=== PATIENT | female | born 1945 | race Caucasian/White ===

== ENCOUNTER 2024-01-17 12:04 | Outpatient (AMB) | payer BC, SELFPAY ==
--- NOTE | 2024-01-17 13:00 | A.OFFVIS_ITS ---
Intake Vital Signs 01/17/24 13:01 Height 5 ft 3 in Weight 124 lb 8 oz BMI 22.1 BP 118/68 Blood Pressure Location Rt brachial Position Sitting Respiration 16 Pulse 73 Pulse Source Pulse Oximeter Pulse Oximetry (%) 98 Oxygen Delivery Method Room Air Intake Visit Reasons: E-FINANCIAL ASSISTANCE ADVISOR: Memory Loss-CONF Intake Note: Pt presents to the office for new pt evaluation for memory loss. [facility] Consultant Required: No Allergies No Known Allergies Allergy (Verified 01/17/24 13:04) Medication List - Last Reconciled 01/17/24 by Kasey Flaherty MD bupropion HCl 150 mg PO QAM citalopram 20 mg PO DAILY simvastatin 40 mg PO DAILY vit C,Y-Ob-cqgoh-lutein-zeaxan 250-90-40-1 mg (PreserVision AREDS-2) 1 tab PO BID HPI HPI Comments History of Present Illness Details 78y/o left handed female comes for evalu ation of cognitive issues. 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 she is usually searching for things in her house and gets distracted easily. she misplaces her glasses, forgot to add detergent to her laundry , forgets conversations etc.she still handles her finances but feels she is OK. She has h/o depression and anxiety and feels like her anxiety is worse especially when she is driving - may get panic attacks.she gets startled easily . she stopped driving at night. she sleeps good. No h/o head injury . 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 [facility] Medical History (Updated 01/17/24 @ 13:44 by Kasey Flaherty MD) Cognitive change Hearing loss Hyperlipidemia Depression Anxiety Surgical History (Updated 01/17/24 @ 13:05 by Vinita Calzada CMA) H/O: hysterectomy Family History (Updated 01/17/24 @ 13:06 by Vinita Calzada CMA) Father No problems noted. Mother No problems noted. Social History (Updated 01/17/24 @ 13:07 by Vinita Calzada CMA) Household Members: Spouse Housing: House Alcohol intake: never Patient Tobacco Use Status: Never used Tobacco Physical Exam Vital Signs: Last Vital Signs Pulse 73 01/17/24 13:01 Resp 16 03/12/24 13:01 BP 118/68 01/17/24 13:01 Pulse Ox 98 01/17/24 13:01 Oxygen Delivery Method Room Air 01/17/24 13:01 BMI result Body Mass Index 22.1 Const General: cooperative, healthy appearing and comfortable Nutritional Appearance: average body habitus Orientation/consciousness: patient oriented x3 Eyes Pupils: Equal, round and reactive pupils present Neck Neck: Yes no meningeal signs Neuro General: patient oriented x3, tone normal, moves all extremities, no meningeal signs and no focal motor deficits Cranial nerves: Yes Facial sensation intact/muscles of mastication intact, Yes Equal, round and reactive pupils present, Yes Bilaterally intact EOM present, Yes Nystagmus not present, Yes Normal facial strength present, Yes Midline tongue present and Yes Symmetric palate elevation present Cognition (Neuro): normal cognition Gait exam (Neuro): Normal gait present Motor exam (neuro): 5/5 motor strength present throughout Deep tendon reflexes (DTR's): Right triceps reflex intensity grade: 2+, Left triceps reflex intensity grade: 2+, Rt Biceps (C5, C6): 2+, Left biceps reflex intensity grade: 2+, Right brachioradialis reflex intensity grade: 2+, Left brachioradialis reflex intensity grade: 2+, Right patellar reflex intensity grade: 2+ and Left patellar reflex intensity grade: 2+ Coordination: [id number] test normal Psych Appearance: grossly normal Affect: Anxious affect present Orientation What is the (year) (season) (date) (day) (month)?: year, season, date, day and month Where are we (state) (county) (town or city) (hospital) (floor)?: state, county, town or city, hospital/clinic and floor Registration Name of 3 unrelated objects clearly and slowly, then ask patient to repeat all 3 of them. (1st repeat determines score. Make sure they can repeat all three): object 1, object 2 and object 3 Attention & Calculation (CHOOSE ONE) Spell WORLD backwards (DLROW): 5 letters Recall Ask patient to repeat the 3 items from question #3.: object 1, object [address] Language Show patient a wristwatch & ask what it is. Repeat for pencil.: watch and pencil Ask the patient to repeat the phrase 'No ifs, ands, or buts' after you.: correct Ask the patient to 'take a piece of paper with their right hand' 'fold paper in half' 'place paper on floor': take paper in right hand, fold paper in half and place paper on floor Print the sentence 'CLOSE YOUR EYES' on a piece. If patient actually closes eyes then score.: followed written direction Give patient a blank piece of paper & ask to write a sentence. Score if it contains a noun & verb.: sentence contains subject and verb Score Score: 29 Assessment & Plan Assessment & Plan (1) Cognitive change: Comment: likely relate dto poorly controlled anxiety and hearing loss Code(s): R41.89 - Other symptoms and signs involving cognitive functions and awareness (2) Anxiety: Code(s): F41.9 - Anxiety disorder, unspecified Plan 08/29 MRI- chronic small vessel changes and volume loss. Lab reports from PCP Trial buspirone 5mg bid for anxiety she declines psychology referral will refer her for Hearing evaluation Orders: Referrals Speech and Hearing Referral H91.90 - Unspecified hearing loss, unspecified ear Medications: New citalopram 40 mg PO DAILY buspirone 5 mg PO BID 60 tabs 2RF Coding Level of Care Code New Pt Level 4 (08432) Diagnoses Cognitive change R41.89 Anxiety F41.9
[2024-01-17 13:01] VITALS: BP 118/68; PULSE 73; RESP 16; O2SAT 98; BMI 22.1
== END 2024-01-17 13:50 | disposition home or self-care (01) ==
PROVIDERS: PCP Internal Medicine; Visit Provider Psychiatry & Neurology Neurology
DX: R41.89 Other symptoms and signs involving cognitive functions and awareness (principal); F41.9 Anxiety disorder, unspecified
CPT/HCPCS: 99204

== ENCOUNTER → 2024-01-17 12:04 | Outpatient (BNVA) | payer BC, SELFPAY | PROVIDERS: PCP Internal Medicine; Visit Provider Psychiatry & Neurology Neurology ==

== ENCOUNTER 2024-03-12 09:11 | Outpatient (REF) | payer BC, SELFPAY | END 2024-03-12 09:12 | disposition home or self-care (01) | LOC: HO.SH 09:11 | PROVIDERS: Visit Provider Psychiatry & Neurology Neurology | DX: Z01.118 Encounter for examination of ears and hearing with other abnormal findings (principal); H90.3 Sensorineural hearing loss, bilateral | CPT/HCPCS: 92557; 92567 ==

== ENCOUNTER 2024-05-25 08:39 | Outpatient (AMB) | payer BC, SELFPAY ==
--- NOTE | 2024-05-25 08:44 | MHC.OFFVIS ---
Vital Signs 05/25/24 08:48 Height 5 ft 3 in Weight 126 lb 4 oz BMI 22.4 BP 112/68 Blood Pressure Location Rt brachial Position Sitting Respiration 16 Pulse 74 Pulse Source Pulse Oximeter Pulse Oximetry (%) 99 Oxygen Delivery Method Room Air Intake Visit Reasons: Follow up - Confirmed Intake Note: Patient presents for follow up. Allergies No Known Allergies Allergy (Verified 05/25/24 08:47) Medication List - Last Reconciled 05/25/24 by Kasey Flaherty MD bupropion HCl XL 150 mg PO QAM buspirone 10 mg (2 x 5 mg) PO BID citalopram 40 mg PO DAILY simvastatin 40 mg PO DAILY vit C,E-Eb-jooef-lutein-zeaxan 250-90-40-1 mg (PreserVision AREDS-2) 1 tab PO BID HPI Comments Details: 78y/o left handed female comes for follow up of cognitive issues. she feels she needs more buspar. she had hearing evaluation- low frequency loss. 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 she is usually searching for things in her house and gets distracted easily. she misplaces her glasses, forgot to add detergent to her laundry , forgets conversations etc.she still handles her finances but feels she is OK. She has h/o depression and anxiety and feels like her anxiety is worse especially when she is driving - may get panic attacks.she gets startled easily . she stopped driving at night. she sleeps good. No h/o head injury . 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 [facility] Medical History Cognitive change Hearing loss Hyperlipidemia Depression Anxiety Surgical History H/O: hysterectomy Family History Father No problems noted. Mother No problems noted. Social History Household Members: Spouse Housing: House Alcohol intake: never Patient Tobacco Use Status: Never used Tobacco Physical Exam Vital Signs: Last Vital Signs Pulse 74 05/25/24 08:48 Resp 16 05/25/24 08:48 BP 112/68 05/25/24 08:48 Pulse Ox 99 05/25/24 08:48 Oxygen Delivery Method Room Air 05/25/24 08:48 BMI result Body Mass Index 22.4 Const General: cooperative, healthy appearing and comfortable Nutritional Appearance: average body habitus Orientation/consciousness: patient oriented x3 Eyes Pupils: Equal, round and reactive pupils present Neck Neck: Yes no meningeal signs Neuro General: patient oriented x3, tone normal, moves all extremities, no meningeal signs and no focal motor deficits Cranial nerves: Yes Facial sensation intact/muscles of mastication intact, Yes Equal, round and reactive pupils present, Yes Bilaterally intact EOM present, Yes Nystagmus not present, Yes Normal facial strength present, Yes Midline tongue present and Yes Symmetric palate elevation present Cognition (Neuro): normal cognition Gait exam (Neuro): Normal gait present Motor exam (neuro): 5/5 motor strength present throughout Coordination: [id number] test normal Psych Appearance: grossly normal Affect: Anxious affect present Assessment & Plan Assessment & Plan (1) Cognitive change: Comment: likely relate dto poorly controlled anxiety and hearing loss Code(s): R41.89 - Other symptoms and signs involving cognitive functions and awareness Category: Medical (2) Anxiety: Code(s): F41.9 - Anxiety disorder, unspecified Category: Medical Plan 08/29 MRI- chronic small vessel changes and volume loss. Lab reports from PCP Increase buspirone 10mg bid for anxiety she declines psychology referral F/u with PCP Medications: Changed From buspirone 5 mg PO BID 60 tabs 6RF To buspirone 10 mg (2 x 5 mg) PO BID 120 tabs 6RF Coding Level of Care Code Est Pt Level 4 (90143) Diagnoses Cognitive change R41.89 Anxiety F41.9
[2024-05-25 08:48] VITALS: BP 112/68; PULSE 74; RESP 16; O2SAT 99; BMI 22.4
== END 2024-05-25 09:01 | disposition home or self-care (01) ==
PROVIDERS: PCP Internal Medicine; Visit Provider Psychiatry & Neurology Neurology
DX: R41.89 Other symptoms and signs involving cognitive functions and awareness (principal); F41.9 Anxiety disorder, unspecified
CPT/HCPCS: 99214

== ENCOUNTER → 2024-05-25 08:39 | Outpatient (BNVA) | payer BC, SELFPAY | PROVIDERS: PCP Internal Medicine; Visit Provider Psychiatry & Neurology Neurology ==